=== PATIENT | male | born 1950 | race Two or more races ===

== ENCOUNTER 2022-12-19 08:45 | Inpatient (IN) | payer OTHER ==
[~2022-12-19] VITALS: Ht 188 cm; Wt 95.3 kg
[2022-12-26] MEDS ORDERED: ELIQUIS2.5 MG PO (14:43)
[2022-12-26] MEDS ORDERED: PERCOCET 5-3251 EACH PO (14:43)
[2022-12-26] MEDS ORDERED: DUI500 PO (14:43)
== END 2022-12-26 22:25 | disposition home health service (06) | DRG 470 ==
LOC: O/R 12-24 05:42 → SURG 12-24 05:42 → SURH 12-24 08:45 → SURG 12-24 18:08
PROVIDERS: ADMIT Orthopaedic Surgery; ATTEND Orthopaedic Surgery
PROC: 0SR90JZ Replacement of Right Hip Joint with Synthetic Substitute, Open Approach (ICD-10-PCS; principal; 2022-12-24 10:30)
PROC: 30233N1 Transfusion of Nonautologous Red Blood Cells into Peripheral Vein, Percutaneous Approach (ICD-10-PCS; 2022-12-25)
DX: M16.11 Unilateral primary osteoarthritis, right hip (principal); D62 Acute posthemorrhagic anemia; E66.9 Obesity, unspecified; I10 Essential (primary) hypertension

== ENCOUNTER 2023-12-31 07:30 | Inpatient (IN) | payer OTHER ==
[~2023-12-31] VITALS: Ht 188 cm; Wt 95.3 kg
[~2023-12-31 07:30] MED LIST: DUI500 PO; ELIQUIS2.5 MG PO; PERCOCET 5-3251 EACH PO
[2024-01-01 11:52] LABS: HEMATOCRIT 35.3 % (39.0-48.0); HEMOGLOBIN 11.6 g/dL (13-16.00); MEAN CELL VOLUME 87.8 fL (80.0-100.00); MEAN CORPUSCULAR HEMOGLOBIN 28.9 pg (27.00-32.0); MEAN CORPUSCULAR HGB CONC 32.9 g/dl (32.0-36.0); PLATELET COUNT 193 K/uL (150-450); RED BLOOD COUNT 4.02 M/uL (4.00-6.00); RED CELL DISTRIBUTION WIDTH 13.3 % (11.5-14.5)
[2024-01-01 11:59] LABS: PH,URINE 7.5 (5.0-8.0); URINE APPEARANCE Clear; URINE BILIRRUBIN Negative (NEGATIVE); URINE BLOOD Negative; URINE COLOR Yellow; URINE GLUCOSE Negative (NEGATIVE); URINE LEUKOCYTE Negative; URINE NITRATE Negative; URINE PROTEIN Negative (NEGATIVE)
[2024-01-01 12:10] LABS: URINE BACTERIA 0 uL (0.0-1933); URINE EPITHELIAL CELLS 0.6 uL (0.0-38.8); URINE WBC 1.2 uL (0.0-23.2)
[2024-01-01 12:25] LABS: BILIRUBIN TOTAL 0.67 mg/dL (0.3-1.2); CALCIUM 9.2 mg/dL (8.5-10.1); CREATININE SERUM 0.95 mg/dL (0.70-1.30); GFR 77.5; GLOBULINA 4.3 G/DL (2.4-3.5); POTASSIUM 4.33 mEq/L (3.5-5.1); TOTAL PROTEIN 8.3 gm/dL (6.4-8.2)
[2024-01-01 12:46] LABS: INR 0.99; PARTIAL THROMBOPLASTIN TIME 28.1 SECONDS (22.0-34.0); PROTHROMBIN TIME 10.4 SECONDS (9.0-11.5)
[2024-01-06] MEDS ORDERED: LOSARTAN-HCTZ1 EACH (10:53)
[2024-01-06] MEDS ORDERED: ATORVASTATIN CA20 MG (10:53)
[2024-01-06] MEDS ORDERED: CEFAZOLIN SODIUM 1,000 MG VIAL ONE ×2 (11:37→16:48)
[2024-01-06] MEDS ORDERED: KETOROLAC TROMETHAMINE 60 MG VIAL IM ONE ×2 (11:48→13:15)
[2024-01-06] MEDS ORDERED: LIDOCAINE HCL/EPINEPHRINE 20 ML VIAL IJ ONE ×2 (11:48→13:15)
[2024-01-06] MEDS ORDERED: VANCOMYCIN HCL 1,000 MG VIAL ONE (11:48)
[2024-01-06] MEDS ORDERED: TRANEXAMIC ACID 100MG/1ML (1000MG) AMPUL IV ONE ×3 (11:57→13:15)
[2024-01-06] MEDS ORDERED: ENALAPRILAT DIHYDRATE 1.25 MG/ML VIAL IV ONE ×2 (12:52→14:30)
[2024-01-06] MEDS ORDERED: VANCOMYCIN HCL 1,000 MG VIAL IR ONE (13:15)
[2024-01-06] MEDS ORDERED: BUPIVACAINE HCL/PF 0.5% 5MG/ML VIAL IJ ONE (13:15)
[2024-01-06] MEDS ORDERED: MORPHINE SULFATE 4 MG/ML CARTRIDGE IV ONE (13:15)
[2024-01-06] MEDS ORDERED: CEFAZOLIN SODIUM 1,000 MG VIAL IV ONE (13:15)
[2024-01-06] MEDS ORDERED: MORPHINE SULFATE 4 MG/ML CARTRIDGE IV PRN (13:45)
[2024-01-06] MEDS ORDERED: SODIUM CHLORIDE 0.45 % 1,000 ML IV SCH (13:45)
[2024-01-06] MEDS ORDERED: ONDANSETRON HCL 2 MG/ML VIAL IV PRN (13:45)
[2024-01-06] MEDS ORDERED: OxyCODONE HCL 5 MG TABLET (ROXICODONE) PO PRN (13:45)
[2024-01-06] MEDS ORDERED: GABAPENTIN 300 MG CAPSULE PO SCH (17:00)
[2024-01-06] MEDS ORDERED: CEFAZOLIN SODIUM 1,000 MG VIAL IV SCH (17:00)
[2024-01-06] MEDS ORDERED: ACETAMINOPHEN 500 MG GEL..CAP PO SCH (18:00)
[2024-01-06] MEDS ORDERED: ENALAPRILAT DIHYDRATE 1.25 MG/ML VIAL IV PRN (19:15)
[2024-01-07 05:01] LABS: HEMATOCRIT 28.4 % (39.0-48.0); MEAN CELL VOLUME 88.2 fL (80.0-100.00); MEAN CORPUSCULAR HGB CONC 33.5 g/dl (32.0-36.0); RED BLOOD COUNT 3.22 M/uL (4.00-6.00); RED CELL DISTRIBUTION WIDTH 12.9 % (11.5-14.5)
[2024-01-07 05:27] LABS: HEMOGLOBIN 9.5 g/dL (13-16.00); MEAN CORPUSCULAR HEMOGLOBIN 29.5 pg (27.00-32.0); PLATELET COUNT 126 K/uL (150-450)
[2024-01-07] MEDS ORDERED: PERCOCET 5-3251 EACH PO (07:54)
[2024-01-07] MEDS ORDERED: ELIQUIS2.5 MG PO (07:54)
[2024-01-07] MEDS ORDERED: DUI500 PO (07:54)
[2024-01-07] MEDS ORDERED: SENNOSIDES 1 TAB TABLET PO SCH (09:00)
[2024-01-07] MEDS ORDERED: APIXABAN 2.5 MG TABLET PO SCH (09:00)
[2024-01-07] MEDS ORDERED: LOSARTAN/HYDROCHLOROTHIAZIDE 1 UDTAB TABLET PO SCH (09:00)
[2024-01-07] MEDS ORDERED: VITAMIN B COMPLEX 1 EACH PO SCH (12:44)
[2024-01-07] MEDS ORDERED: THIAMINE HCL 100 MG TABLET PO SCH (12:44)
[2024-01-07] MEDS ORDERED: SOD FERRIC GLUC COMPLX/SUCROSE 62.5 MG/5 ML AMPUL IV SCH (12:44)
[2024-01-08 05:59] LABS: HEMATOCRIT 28.9 % (39.0-48.0); HEMOGLOBIN 9.6 g/dL (13-16.00); MEAN CELL VOLUME 88.9 fL (80.0-100.00); MEAN CORPUSCULAR HEMOGLOBIN 29.7 pg (27.00-32.0); MEAN CORPUSCULAR HGB CONC 33.4 g/dl (32.0-36.0); RED BLOOD COUNT 3.25 M/uL (4.00-6.00); RED CELL DISTRIBUTION WIDTH 12.8 % (11.5-14.5)
[2024-01-08 06:20] LABS: PLATELET COUNT 125 K/uL (150-450)
[2024-01-08] MEDS ORDERED: IRON FUM,PS/FOLIC ACID/VITC/B3 1 CAP CAPSULE PO SCH ×2 (09:00)
== END 2024-01-08 21:12 | disposition home or self-care (01) | DRG 470 ==
LOC: O/R 01-06 06:32 → SURG 01-06 06:32
PROVIDERS: ADMIT Orthopaedic Surgery; ATTEND Orthopaedic Surgery
PROC: 0SRD0J9 Replacement of Left Knee Joint with Synthetic Substitute, Cemented, Open Approach (ICD-10-PCS; principal; 2024-01-06 07:00)
DX: M17.12 Unilateral primary osteoarthritis, left knee (principal); D62 Acute posthemorrhagic anemia; M22.12 Recurrent subluxation of patella, left knee; I10 Essential (primary) hypertension